=== PATIENT | male | born 1990 | race Caucasian/White ===

== ENCOUNTER 2022-04-18 19:17 | Emergency (ER) | payer SELFPAY ==
[2022-04-18 19:24] VITALS: BP 154/68; PULSE 92; RESP 16; TEMP 36.7; O2SAT 98
--- NOTE | 2022-04-18 19:45 | DI.RAD_ITS ---
Exam(s) XR KNEE LT 3V AP,LAT,JERRY EXAM: XR KNEE LT 3V AP,LAT,JERRY CLINICAL HISTORY: running, sudden knee pain, suspect acl vs maniscus. TECHNIQUE: 2D digital imaging was performed of the left knee. Three images were obtained. AP, late ral and PA tunnel views were obtained. COMPARISON: No exams were available for comparison FINDINGS: BONES: No acute fracture is present. No bony destructive lesion is seen. JOINTS: The knee is normally aligned. No joint effusion is seen. There are mild degenerative changes present. SOFT TISSUE: Normal. IMPRESSION: No acute abnormality. DATA REPOSITORY: RADIATION DOSE DELIVERED:
--- NOTE | 2022-04-18 20:17 | ED.GENADUL_ITS ---
Discharge Plan Disposition Patient Disposition: HOME Condition: Good Discharge Details Chief Complaint: Orthopedic Clinical Impression: Left knee sprain Primary Care Provider: Unknown,Unknown ED Provider: Ángel Crane Home Meds and New Rx's Prescriptions: No Action No Known Home Meds Discharge Instructions Instructions: Knee Sprain (ED) Additional Instructions: At at this time your x-ray shows no evidence of fracture. I suspect you underwent a notable sprain of your knee. Please remain nonweightbearing for the next week. Use the crutches. Use the knee brace after this and slowly transition to weightbearing. If you have persistent pain with movement you may need orthopedic follow-up. If you notice any worsening of your symptoms, or any new symptoms such as vomiting, diarrhea, fever, chills, shortness of breath, chest pain, numbness, weakness, or fainting , please return immediately to the emergency department for reevaluation. Please follow up with your primary care provider as soon as possible for reassessment and reevaluation. As always, it was a pleasure participating in your medical care today. Referrals: Jairo Fox MD [ [facility] STAFF PHYSICIAN] - Enoc Schwarz MD [ [facility] STAFF PHYSICIAN] - Medical Decision Making 31-year-old male with a past medical history of previous left knee injury, presents today for left knee pain. Patient states that he was riding with his child when his knees suddenly felt like it went into an odd direction, and he had immediate pain in the knee was stuck at a 45 degree flexed angle. He denies any trauma or stepping into any home. He had to forcibly straighten his knee out. He took NSAIDs prior to arrival. Episode occurred 2 hours prior to arrival. Pain is made worse with ambulation and flexion and extension. Improved by rest. He denies any numbness or tingling. He works for [employer] and does frequent activity with his leg. No other complaints at this time. No other modifying factors. Exam demonstrates a left knee is stable to varus, valgus, and anterior drawer stres and posterior drawer stress. No deformity. Patellar grind test is negative. However patient does have tenderness at the inferior aspect of the patella. Heide test is notably positive for pain. Patient is able to walk with a mild limp. No edema or warmth to the joint. No ttp to the tibial plateau, or fibular head. Mild pain at the posterior popliteal space. No pulsatile mass or significant swelling. Patient demonstrates good strength with flexion and extension but he does have pain with both of these movements. Good plantar and dorsiflexion of the toes. Brisk capillary refill in all toes, dorsalis pedis posterior tibial pulse +2 bilaterally. Symptoms appear inconsistent with posterior dislocation, or neurovascular injury. History appears inconsistent with dislocation. I do worry of meniscal injury and pot ential ACL or PCL injury. However that being said the knee is notably stable in the appropriate drawer testing. We will get an x-ray to evaluate for focal fracture. Symptoms appear inconsistent with tibial plateau fracture as he is able to ambulate with only a very mild limp. Will recommend NSAIDs, crutches, nonweightbearing and a hinged knee brace. 9:10 PM X-ray results returned negative for evidence of fracture. No evidence of a Segond fracture. Symptoms inconsistent with knee dislocation. Suspect meniscal injury. Will give crutches and hinged knee brace. Recommend nonweightbearing for the next week with a gradual return to use. Recommend Tylenol and Motrin. Discussed red flags which return. I have extensively reviewed the treatment plan and discharge instructions with the patient. I have addressed all patient concerns at this time. The patient was made aware of what symptoms to monitor for that would warrant a return to the emergency department. Discussed the plan with the patient, they demonstrate verbal understanding and agreement with our assessment and plan at this time. The documentation in this chart was dictated using [employer] dictation software. Please excuse any dictation errors. FINDINGS: Bones/joints: No bony or joint space abnormality. No fracture. Soft tissues: Unremarkable. IMPRESSION: No acute findings. Thank you for allowing us to participate in the care of your patient. Dictated and Authenticated by: Jean Paul Venegas MD 04/18/2022 8:59 PM Eastern Time ([place] & [place]) HPI General Date/Time Provider Initiated Documentation: 04/18/22 19:36 . HPI Narrative: 31-year-old male with a past medical history of previous left knee injury, presents today for left knee pain. Patient states that he was riding with his child when his knees suddenly felt like it went into an odd direction, and he had immediate pain in the knee was stuck at a 45 degree flexed angle. He denies any trauma or stepping into any home. He had to forcibly straighten his knee out. He took NSAIDs prior to arrival. Episode occurred 2 hours prior to arrival. Pain is made worse with ambulation and flexion and extension. Improved by rest. He denies any numbness or tingling. He works for [employer] and does frequent activity with his leg. No other complaints at this time. No other modifying factors. Related Data Home Medications Medication Instructions Recorded Confirmed Unknown [No Known Home Meds] 04/18/22 04/18/22 Allergies Allergy/AdvReac Type Severity Reaction Status Date / Time No Known Allergies Allergy Unverified 04/18/22 19:27 General Stated Complaint: Orthopedic MARIAELENA: 4 Review of Systems All systems reviewed & are unremarkable except as noted in HPI and below PFSH All Active Problems (Updated 04/18/22 @ 21:13 by Ángel Crane DO) Contusion (Acute) Left knee sprain (Acute) Social History Smoking/Tobacco Use Status: Current every day Tobacco Type: cigarettes Smoking risk assessment performed?: Yes Alcohol Intake: never Drug use: Rarely Substance use type: marijuana Do you feel safe in your relationship?: Yes Exam Narrative Exam Narrative: 1.Const: Well-nourished, Well-developed, appearing stated age 2.Eyes: PERRL, no conjunctival injection, and symmetrical lids. 3.ENT: Atraumatic external nose and ears. Moist MM. Neck: Symmetric, trachea midline, No thyromegaly. 4.CVS: +S1/S2, No murmurs or gallops. Peripheral pulses 2+ and equal in all extremities. Brisk capillary refill in all extremities. 5.RESP: Unlabored respiratory effort. Clear to auscultation bilaterally. No wheezes rales or rhonchi 6.GI: Soft, Nontender/Nondistended, No hepatosplenomegaly. No guarding or rebound. 7.MSK: Normocephalic/Atraumatic, Extremities w/o deformity . No cyanosis or clubbing, Left knee: The knee is stable to varus, valgus, and anterior drawer stres and posterior drawer stress. No deformity. Patellar grind test is negative. However patient does have tenderness at the inferior aspect of the patella. Heide test is notably positive for pain. Patient is able to walk with a mild limp. No edema or warmth to the joint. No ttp to the tibial plateau, or fibular head. Mild pain at the posterior popliteal space. No pulsatile mass or significant swelling. Patient demonstrates good strength with flexion and extension but he does have pain with both of these movements. Good plantar and dorsiflexion of the toes. Brisk capillary refill in all toes, dorsalis pedis posterior tibial pulse +2 bilaterally. 8.Skin: Warm, Dry. No rashes or lesions. 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 Sensation grossly intact, no focal neurologic deficits. 10.Psych: (AAO) x3. Appropriate mood and affect Course Vital Signs Vital signs: Vital Signs Temperature 36.7 C 04/18/22 19:24 Pulse 92 H 04/18/22 19:24 Respiratory Rate 16 04/18/22 19:24 Blood Pressure 154/68 H 04/18/22 19:24 Pulse Oximetry 98 04/18/22 19:24 Temperature 36.7 C 04/18/22 19:24 Temperature Source Tympanic 04/18/22 19:24 Pulse 92 H 04/18/22 19:24 Respiratory Rate 16 04/18/22 19:24 Respiratory Effort 04/18/22 19:24 Blood Pressure 154/68 H 04/18/22 19:24 Blood Pressure Position Sitting 04/18/22 19:24 Pulse Oximetry 98 04/18/22 19:24 Oxygen Delivery Method Room Air 04/18/22 19:24 Oxygen Flow Rate 0 04/18/22 19:24 Pain Level 6 04/18/22 19:24
--- NOTE | 2022-04-18 20:59 | DI.VRAD_ITS ---
PROCEDURE INFORMATION: Exam: XR Left Knee Exam date and time: 04/18/2022 8:13 PM Age: 31 years old Clinical indication: Pain; Knee; Left TECHNIQUE: Imaging protocol: Radiologic exam of the Left knee. Views: 3 views. Total images: 3 COMPARISON: No relevant prior studies available. FINDINGS: Bones/joints: No bony or joint space abnormality. No fracture. Soft tissues: Unremarkable. IMPRESSION: No acute findings. Dictated and Authenticated by: Jean Paul Venegas MD. Ordering:DELMER Neal MD
== END 2022-04-18 21:49 | disposition home or self-care (01) ==
PROVIDERS: Emergency Provider Student in an Organized Health Care Education/Training Program
DX: S83.92XA Sprain of unspecified site of left knee, initial encounter (principal); F17.210 Nicotine dependence, cigarettes, uncomplicated; X50.1XXA Overexertion from prolonged static or awkward postures, initial encounter; Y93.I9 Activity, other involving external motion
CPT/HCPCS: 73562; 99283; 99282